=== PATIENT | female | born 1980 | race Caucasian/White ===

== ENCOUNTER → 2016-09-11 | Outpatient (CLI) | payer OTHER ==
[~2016-09-11] MED LIST: ADVAIR 250-501 EAC1 INH; ALBUTEROL MININEB NEB; ALBUTEROL17 GM INH; ASPIRIN81 M2 PO; BENTYL20 MG PO; CHLORTHALIDONE25 M1 PO; CITALOPRAM HBR40 MG PO; CLONIDINE HCL0.1 MG PO; FLEXERIL10 MG PO; HYDROCODON-ACE1 EAC9 PO; LISINOPRIL20 MG PO; MOBIC PO; PRILOSEC PO; SINGULAIR PO; VITAMIN D250000 UNIT PO; ZANTAC150 MG PO; [UNRECOGNIZED DRUG - OTHER] IM
--- NOTE | ~2016-09-11 | CR97 ---
[facility] A Service of [facility] & [facility] RADIOLOGY TEXT RESULTS PATIENT: PAUL LERMA LOCATION: [facility] : [birth year] UNIT #: [id number] AGE: [address]: Raulito Pitts SEX: F ORDER DR: [id number] [facility] [address] [place], [place] [address] [id number] O MR#: [id number] Acc #: [id number] NAME: PAUL LERMA : 1980 SEX: F STUDY DATE/TIME: 09/11/2016 7:40 UNIT: [facility] ROOM: STUDY DESCRIPTION: CR Esophagram Attending Physician: Raulito Pitts M.D. Ordering Physician: Raulito Pitts M.D. MEDICAL IMAGING REPORT This report is preliminary unless electronic signature is present EXAM Barium esophagram. HISTORY Preop lap-band. FINDINGS Barium was administered orally. Swallowing was normal. The esophagus was of normal course, caliber, mucosal pattern and distensibility. No evidence of hiatal hernia or reflux. CONCLUSION Normal. Dictated by... Phan Bundy M.D. THIS IS AN ELECTRONICALLY VERIFIED REPORT Phan Bundy M.D. at 09/14/2016 5:12 PM Ari TD: 09/11/2016 12:26 JOB #: [id number] MEDICAL IMAGING REPORT Page 1 of 1 COPY
--- NOTE | ~2016-09-11 | EKG ---
PATIENT: PAUL LERMA UNIT #: [id number] Ventricular Rate: 79 BPM Atrial Rate: 79 BPM P-R Interval: 146 ms QRS Duration: 84 ms Q-T Interval: 374 ms QTC Calculation(Bezet): 428 ms P [place]: 18 degrees Calculated R [place]: 20 degrees Calculated T [place]: 23 degrees Diagnosis Line: Sinus rhythm with frequent Premature ventricular Diagnosis Line: complexes Diagnosis Line: No previous ECGs available Diagnosis Line: Confirmed by LEXI JACKSON MD ([id number]) on Diagnosis Line: 09/11/2016 4:16:33 PM INTERPRETING MD: DADA
--- NOTE | ~2016-09-11 | CR63 ---
[facility] A Service of [facility] & [facility] RADIOLOGY TEXT RESULTS PATIENT: PAUL LERMA LOCATION: [facility] : 82 UNIT #: [id number] AGE: [address]: Raulito Pitts SEX: F ORDER DR: [id number] [facility] [address] [place], [place] [address] [id number] O MR#: [id number] Acc #: [id number] NAME: PAUL LERMA : 1980 SEX: F STUDY DATE/TIME: 09/11/2016 7:24 UNIT: [facility] ROOM: STUDY DESCRIPTION: CR Chest 2 View Attending Physician: Raulito Pitts M.D. Ordering Physician: Raulito Pitts M.D. MEDICAL IMAGING REPORT This report is preliminary unless electronic signature is present EXAM PA and lateral chest. HISTORY Preop lap band surgery, shortness of breath with activity. FINDINGS PA and lateral views are obtained and compared directly to the study of 08/27/13. The cardiovascular configuration is normal and the lungs are clear. CONCLUSION Normal chest. Dictated by... Phan Bundy M.D. THIS IS AN ELECTRONICALLY VERIFIED REPORT Phan Bundy M.D. at 09/14/2016 5:12 PM Ari TD: 09/11/2016 09:35 JOB #: [id number] MEDICAL IMAGING REPORT Page 1 of 1 COPY
[2016-09-11 09:00] LABS: HEMATOCRIT 44.8 % (35.0-45.0); HEMOGLOBIN 14.9 gm/dL (12.0-16.0); MEAN CELL VOLUME 83.7 FL (83-96); MEAN CORPUSCULAR HEMOGLOBIN 27.8 PG (28-34); MEAN CORPUSCULAR HGB CONC 33.3 g/dL (30-36); MEAN PLATELET VOLUME 7.5 FL (6.5-11.5); RED BLOOD COUNT 5.35 X10e (3.90-5.30); RED CELL DISTRIBUTION WIDTH 15.2 % (11.0-15.5); WHITE BLOOD COUNT 5.8 X10e3 (4.0-10.5)
[2016-09-11 10:00] LABS: ALBUMIN SERUM 4.6 g/dL (3.5-5.0); BILIRUBIN,TOTAL 0.6 mg/dL (0.2-2.0); CALCIUM SERUM 9.9 mg/dL (8.4-10.2); CREATININE SERUM 0.8 mg/dL (0.6-1.4); GLOM FILT RATE Estimated 95.6 mL/min (>60); POTASSIUM 3.5 mmol/L (3.5-5.1); PROTEIN TOTAL SERUM 7.2 g/dL (6.0-8.3)
== END | disposition home or self-care (01) ==
LOC: CRAD 07:04 → CAMB 09:00
PROVIDERS: Surgery
DX: Z01.818 Encounter for other preprocedural examination (principal); I49.3 Ventricular premature depolarization
CPT/HCPCS: 36415; 71020; 74220; 80053; 80061; 84443; 85027; 93005

== ENCOUNTER → 2016-09-23 | Day surgery (SDC) | payer OTHER | END | disposition home or self-care (01) | LOC: CSUR 05:19 | DX: E66.01 Morbid (severe) obesity due to excess calories (principal); Z53.8 Procedure and treatment not carried out for other reasons | CPT/HCPCS: 84703; C1781; J1650; J1885; J2405; J3370; L8699 ==

== ENCOUNTER → 2016-10-21 | Day surgery (SDC) | payer OTHER ==
--- NOTE | ~2016-10-21 | OR ---
Unit #: [id number] #: [id number] Patient: PAUL LERMA [id number] [address] [place], [place] [address] [id number] O MR#: [id number] NAME: PAUL LERMA ROOM: Date of Procedure: 10/21/2016 Admission Date: 10/21/2016 Surgeon: Phan Espinosa M.D. : 1980 Attending Physician: Phan Espinosa M.D. Primary Care Physician: Sangeeta Langston Aprn OPERATIVE REPORT PREOPERATIVE DIAGNOSIS Chronic morbid obesity, body mass index of 45. POSTOPERATIVE DIAGNOSES 1. Chronic morbid obesity, body mass index of 45. 2. Paraesophageal hiatal hernia. PROCEDURES PERFORMED 1. Laparoscopic adjustable gastric band. 2. Laparoscopic paraesophageal hiatal hernia repair. ASSISTANT Low Cheung M.D. ANESTHESIA General anesthesia. ESTIMATED BLOOD LOSS Minimal. IV FLUIDS 800 crystalloid. COMPLICATIONS None. INDICATIONS FOR PROCEDURE The patient is a young lady, who presents with chronic morbid obesity. DESCRIPTION OF PROCEDURE The patient was taken to the operating room and placed in supine position. General anesthesia was induced. The abdomen was prepped and draped. A 3-cm incision was then made left of the midline. A 10-mm Visiport was then placed intraabdominal under direct vision. The abdomen was insufflated to 15 mmHg with CO2. The patient was then placed in a steep reversed Trendelenburg. General inspection of the abdomen revealed what appeared to be a paraesophageal hernia. This was identified with a defect at the diaphragm using anterior palpation with the instrument. We then made a small incision in the subxiphoid region. A Silas liver retractor was then placed intraabdominal and used to retract the left lobe of the liver upward to further expose the paraesophageal hernia and GE Unit #: [id number] #: [id number] Patient: PAUL LERMA junction. I then placed a 5-mm port in the right upper quadrant, a 10-mm port in the left upper quadrant, and another 5-mm port in the left lower quadrant. The stomach was retracted medial and downward. Upon retracting the stomach, we took down the paraesophageal ligament, exposing the right and left sekou at the paraesophageal hernia. Any hernia sac was reduced. We then repaired the paraesophageal hernia using interrupted #0 Ethibond sutures in a [id number]-[id number]-cueak type fashion. This formed a snug repair to the anterior esophagus. We then retracted the stomach medially and further exposed the angle of His using Bovie electrocautery. The stomach was then retracted laterally. We then took down the hepatogastric ligament with Bovie electrocautery. This exposed the right sekou. Using blunt dissection, I created a retrogastric tunnel from this point to the angle of His. The band was then placed intraabdominal through the 10-mm port site. This was then brought through the retrogastric tunnel in a pars flaccida technique. The band was then closed anteriorly to form a 20-mL to 25-mL anterior gastric pouch. The fundus was then secured to the anterior pouch to prevent movement around the stomach using two interrupted #0 Ethibond sutures. A third suture was then used as a gathering stitch from the lesser curve to the anterior stomach, gathering and imbricating the remaining fundus of the stomach. The tubing was then brought out through the midline 10-mm port site. All ports and the Silas liver retractor were removed under direct vision with no evidence of abdominal hemorrhage. A polypropylene mesh was then secured to the posterior face of the laparoscopic band port. This was secured using #0 Ethibond suture. This was then cut to shape. The port was then connected to the tubing and placed into a subcutaneous pocket just anterior to the rectus sheath. Its position was then confirmed. All tubing was then placed intraabdominal. The wounds were then closed with interrupted 4-0 Vicryl. The patient tolerated the procedure well and was sent to the recovery room in good condition. Dictated by... Aleks Chávez/kael TD: 10/21/2016 16:09 JOB #: [id number] OPERATIVE REPORT Page 1 of 1 X Phan Espinosa MD PROCEDURE OPERATIVE NOTE
--- NOTE | ~2016-10-21 | CR7 ---
[facility] A Service of [facility] & [facility] & [facility] RADIOLOGY TEXT RESULTS PATIENT: PAUL LERMA LOCATION: [facility] : 82 UNIT #: [id number] AGE: [address]: Phan Espinosa MD SEX: F ORDER DR: [id number] [facility] [address] [place], [place] [address] [id number] O MR#: [id number] Acc #: [id number] NAME: PAUL LERMA : 1980 SEX: F STUDY DATE/TIME: 10/21/2016 8:29 UNIT: [facility] ROOM: STUDY DESCRIPTION: CR Abdomen Single AP View Attending Physician: Phan Espinosa M.D. Ordering Physician: Phan Espinosa M.D. Primary Care Physician: Sangeeta Langston Aprn MEDICAL IMAGING REPORT This report is preliminary unless electronic signature is present EXAM Supine radiograph of the abdomen 10/21/2016 HISTORY Postop Lap-Band. Morbid obesity. FINDINGS AP supine radiograph of the abdomen is presented. Patient is status post placement of Lap-Band device. Band component at anticipated location of gastroesophageal junction based on esophagram dated 09/01/2016. Band component approximately 50 degrees from the vertical. The catheter component appears radiographically intact and the port component is implanted over the left lower abdomen. Prior cholecystectomy. Visualized bowel gas pattern normal. Heart [id number]-fb-[id number] limits of normal in size. Patchy and linear densities left lower lung zone probably atelectatic in nature. Pneumonitis less likely though not excluded. No indication of pleural effusion. No free air. Dictated by... Phan Snow M.D. THIS IS AN ELECTRONICALLY VERIFIED REPORT Phan Snow M.D. at 10/21/2016 6:04 PM RAMONA/kimberly TD: 10/21/2016 11:38 JOB #: [id number] MEDICAL IMAGING REPORT Page 1 of 1 COPY
[2016-10-21 06:39] LABS: HEMATOCRIT 43.5 % (35.0-45.0); HEMOGLOBIN 14.5 gm/dL (12.0-16.0); MEAN CELL VOLUME 82.9 FL (83-96); MEAN CORPUSCULAR HEMOGLOBIN 27.6 PG (28-34); MEAN CORPUSCULAR HGB CONC 33.3 g/dL (30-36); MEAN PLATELET VOLUME 7.6 FL (6.5-11.5); RED BLOOD COUNT 5.25 X10e (3.90-5.30); WHITE BLOOD COUNT 4.5 X10e3 (4.0-10.5)
[2016-10-21 07:02] LABS: ALBUMIN SERUM 4.5 g/dL (3.5-5.0); BUN/CREATININE RATIO 13.75; CALCIUM SERUM 9.4 mg/dL (8.4-10.2); CREATININE SERUM 0.8 mg/dL (0.6-1.4); GLOM FILT RATE Estimated 95.6 mL/min (>60); POTASSIUM 3.2 mmol/L (3.5-5.1); PROTEIN TOTAL SERUM 7.1 g/dL (6.0-8.3)
== END | disposition home or self-care (01) ==
LOC: CSUR 05:10
PROVIDERS: Surgery
DX: E66.01 Morbid (severe) obesity due to excess calories (principal); M19.90 Unspecified osteoarthritis, unspecified site; J45.909 Unspecified asthma, uncomplicated; I10 Essential (primary) hypertension; K21.9 Gastro-esophageal reflux disease without esophagitis; G47.30 Sleep apnea, unspecified; Z68.42 Body mass index [BMI] 45.0-49.9, adult; Z87.891 Personal history of nicotine dependence; Z88.0 Allergy status to penicillin; Z91.010 Allergy to peanuts; Z79.1 Long term (current) use of non-steroidal anti-inflammatories (NSAID); Z79.51 Long term (current) use of inhaled steroids; Z79.82 Long term (current) use of aspirin; Z79.891 Long term (current) use of opiate analgesic; Z79.899 Other long term (current) drug therapy; Z90.49 Acquired absence of other specified parts of digestive tract; Z90.710 Acquired absence of both cervix and uterus
CPT/HCPCS: 74000; 80053; 84443; 85027; C1781; J0330; J1100; J1650; J1885; J2250; J2405; J2710; J3010; J3370; L8699